=== PATIENT | female | born 1970 | race Caucasian/White ===

== ENCOUNTER 2018-09-26 23:13 | Emergency (ER) | payer BC ==
--- NOTE | 2018-09-26 23:32 | Emergency Department Record ---
History of Present Illness - General Chief Complaint: Chest Pain Stated Complaint: CHEST PAIN Time Seen by Provider: 09/26/18 23:15 Source: Patient Mode of Arrival: Ambulatory Limitations: No limitations - History of Present Illness Initial Comments: 48 yo female presents to ED for evaluation of chest discomfort that began this evening after receiving bad news this evening. Patient denies hsitory fo cardiac disease, denies fevers, chills, cough, or recent illness. Patient denies lower extremity edema, history of DV, or pain with deep inspiration. Patient denies health problems other than alcohol-induced liver disease, has been in remission for 6 months. MD Complaint: Chest pain Onset/Timin -: Hour(s) Onset: During rest, Other Pain Location: Substernal Pain Radiation: None Severity: Mild Quality: Aching, Other Consistency: Intermittent Improves With: Rest Worsens With: Nothing Context: Other Anginal Symptoms: Nausea, Vomiting Other Symptoms: Acid taste in mouth, Burping, Other Treatments Prior to Arrival: None - Related Data On Oral Contraceptives: No Home Medications Medication Instructions Recorded Confirmed Last Taken Furosemide 40 mg PO DAILY 09/26/18 09/26/18 09/26/18 Potassium Chloride 10 meq PO DAILY 09/26/18 09/26/18 09/26/18 Spironolactone 100 mg PO DAILY 09/26/18 09/26/18 09/26/18 Allergies Allergy/AdvReac Type Severity Reaction Status Date / Time No Known Drug Allergies Allergy Verified 09/26/18 23:27 Travel Screening - Travel/Exposure Within Last 30 Days Have you traveled within the last 30 days?: No - Travel Symptoms Symptom Screening: Vomiting Review of Systems Constitutional: Denies: Chills, Fever, Malaise, Night sweats Eyes: Denies: Eye discharge, Eye pain ENT: Denies: Congestion, Ear pain, Epistaxis Respiratory: Denies: Cough, Dyspnea Cardiovascular: Reports: Chest pain. Denies: Dyspnea on exertion Endocrine: Denies: Fatigue, Heat or cold intolerance Gastrointestinal: Denies: Abdominal pain, Nausea, Vomiting Genitourinary: Denies: Incontinence, Retention Musculoskeletal: Denies: Arthralgia, Back pain Skin: Denies: Bruising, Change in color Neurological: Denies: Abnormal gait, Confusion, Headache, Seizure Psychiatric: Denies: Anxiety Hematological/Lymphatic: Denies: Anemia, Blood Clots Past Medical History - SOCIAL HISTORY Smoking Status: Light tobacco smoker (<10/day) Alcohol Use: None Drug Use: None - RESPIRATORY Hx Respiratory Disorders: No - CARDIOVASCULAR Hx Cardio Disorders: Yes Hx Hypertension: Yes - NEURO Hx Neuro Disorders: No - GI Hx GI Disorders: Yes Hx Liver Disease: Yes - Hx Genitourinary Disorders: No - ENDOCRINE Hx Endocrine Disorders: No - MUSCULOSKELETAL Hx Musculoskeletal Disorders: No - PSYCH Hx Psych Problems: Yes Hx Anxiety: Yes - HEMATOLOGY/ONCOLOGY Hx Hematology/Oncology Disorders: No Family Medical History Any Significant Family History?: No Physical Exam - General General Appearance: Alert, Oriented x3, Cooperative, Mild distress Limitations: No limitations - Head Head exam: Atraumatic, Normocephalic, Normal inspection Head exam detail: negative: Abrasion, Contusion, Thomas's sign, General tenderness, Hematoma, Laceration - Eye Eye exam: Normal appearance. negative: Conjunctival injection, Periorbital swelling, Periorbital tenderness, Scleral icterus - ENT Ear exam: negative: Auricular hematoma, Auricular trauma Nasal Exam: negative: Active bleeding, Discharge, Dried blood, Foreign body Mouth exam: negative: Drooling, Laceration, Muffled voice, Tongue elevation - Neck Neck exam: Normal inspection. negative: Meningismus, Tenderness - Respiratory Respiratory exam: Normal lung sounds bilaterally. negative: Rales, Respiratory distress, Rhonchi, Stridor - Cardiovascular Cardiovascular Exam: Regular rate, Normal rhythm, Normal heart sounds - GI/Abdominal GI/Abdominal exam: Soft. negative: Rebound, Rigid, Tenderness - Rectal Rectal exam: Deferred - exam: Deferred - Extremities Extremities exam: Normal inspection. negative: Pedal edema, Tenderness - Back Back exam: Denies: CVA tenderness (R), CVA tenderness (L) - Neurological Neurological exam: Alert, Normal gait, Oriented X3 - Psychiatric Psychiatric exam: Flat affect - Skin Skin exam: Normal color. negative: Abrasion Type of lesion: negative: abrasion Course Vital Signs 09/26/18 23:17 Temperature 98.1 F Pulse Rate 111 H Respiratory 20 Rate Blood Pressure 135/89 Pulse Ox 99 - Reevaluation(s) Reevaluation #1: 09/26/18 23:31 EKG: Sinus tachycardia 101 LAD, normal intervals No acute ST-T wave changes present on examination. Reevaluation #2: 09/27/18 00:05 Laboratory studies were reviewed and apepars grossly unremarkable for an acute process except for the following: Hgb 11.3 AST 69 ALT 36 Alk Phos 146 T. Bili 5.9. Findings appear c/w history alcohol induced liver disease. CXR: No acute process The patient was deemed to be low-risk for cardiac disease based on the patients history and evaluation in the ED, HEART Score was applied and found to be 1. As a result, repeat Troponin in 3-hours appears appropriate and if negative for myocardial injury, the patient may be discharged home with appropriate outpatient follow-up for further evaluation. Patient also reports recent cardiac evaluation performed at another facility that was negative for myocard ial disease. Patient was updated on all results and plan for repeat Troponin based on the above, Following discussion with the patient regarding repeat Troponin patient reports that they want to leave AMA at this time. Risks of , permanent impairment, or worsening of their current condition were discussed as well as the benefit ofexcluding any evidence for heart attack. Patient verbalizes u nderstanding of all risks and benefits, desires to leave AMA despite these risks. Based on my examination, the patient is alert, oriented, and answers all questions appropriately. Patient appears to have the capacity to make rational decisions based on my examination. Patients family (son/daughter) was present for the duration of our discussion as well. Patient was encouraged to return to the ED immediately if they change their mind about treatment and want to be re- evaluated. Medical Decision Making - Lab Data Result diagrams: 09/26/18 23:37 09/26/18 23:37 Disposition Disposition: Other (AMA) Clinical Impression: Chest pain Qualifiers: Chest pain type: unspecified Qualified Code(s): R07.9 - Chest pain, unspecified Disposition: Against Medical Advice Condition: (2) Stable Instructions: Chest Pain (ED) Additional Instructions: Return to ED if your symptoms worsen or if you have any concerns. Follow-up with your family doctor in 3-5 days as directed. Forms: Patient Portal Access Time of Disposition: 00:20 Quality - Quality Measures Quality Measures: N/A - Blood Pressure Screening Does Patient Have Any of the Following: No Blood Pressure Classification: Pre-Hypertensive BP Reading Systolic Measurement: 135 Diastolic Measurement: 89 Screening for High Blood Pressure: < Pre-Hypertensive BP, F/U Documented > [[id number]] Pre-Hypertensive Follow-up Interventions: Referral to alternative/primary care provider.
[2018-09-26] MEDS: ASPIRIN 81 MG CHEWABLE TABLET PO ONE ×2 (23:38→23:42)
[2018-09-26 23:49] LABS: ABSOLUTE NEUTROPHIL COUNT 6.09; BASO % 0.7 % (0-6); GRAN % 69.2 % (47-80); HEMATOCRIT 33.7 % (35.0-47.0); HEMOGLOBIN 11.3 gm/dl (11.6-16.0); LYMPH % 20.5 % (16-45); MEAN CELL VOLUME 100.3 fl (81-97); MEAN CORPUSCULAR HEMOGLOBIN 33.6 pg (27-33); MEAN CORPUSCULAR HGB CONC 33.5 g/dl (32-36); MEAN PLATELET VOLUME 9.6 fl (7.4-10.4); MONO % 8.6 % (0-9); PLATELET COUNT 186 K/uL (130-400); RED BLOOD COUNT 3.36 M/uL (3.80-5.40); RED CELL DISTRIBUTION WIDTH 14.1 % (11.5-14.5); WHITE BLOOD COUNT W/O DIFF 8.8 K/uL (4.2-12.2)
[2018-09-26 23:57] LABS: BLOOD UREA NITROGEN 11 mg/dL (6-20); CREATININE 0.7 mg/dL (0.5-0.9); EST GLOMERULAR FILTRATION RATE > 60 mL/min
[2018-09-26 23:58] LABS: TOTAL PROTEIN 7.3 g/dL (6.6-8.7)
[2018-09-26 23:59] LABS: GLUCOSE,RANDOM 108 mg/dL (74-109)
[2018-09-27 00:02] LABS: ALB/GLOB RATIO 0.9 (1.1-1.8); ALBUMIN 3.4 g/dL (4.0-5.0); ALKALINE PHOSPHATASE 146 U/L (35-104); ALT/SGPT 36 U/L (<33); AST/SGOT 69 U/L (10.0-35.0)
--- NOTE | 2018-09-28 09:09 | RADIOLOGY REPORT ---
EXAM: CHEST, TWO VIEWS HISTORY: CHEST PAIN. TECHNIQUE: Two views of the chest were obtained. FINDINGS: The lungs are clear. The cardiac size and pulmonary vascularity are normal. IMPRESSION: NORMAL CHEST EXAMINATION. JOB NUMBER: [id number] [facility]
== END 2018-09-27 00:37 | disposition left against medical advice (07) ==
LOC: ER 23:13
DX: R07.9 Chest pain, unspecified (principal); R11.2 Nausea with vomiting, unspecified; I10 Essential (primary) hypertension; F17.210 Nicotine dependence, cigarettes, uncomplicated
CPT/HCPCS: 71046; 80053; 84484; 85025; 93005; 93010; 99285